=== PATIENT | male | born 1985 | race Caucasian/White ===

== ENCOUNTER 2017-02-24 09:56 | Emergency (ER) | payer OTHER ==
--- NOTE | 2017-02-24 11:02 | XRAY Preliminary Report ---
Exam: XR Hand 3 View LT IMPRESSION: 1. Diffuse left hand soft tissue swelling. 2. No fracture evident. [facility] SITE ID: [id number]
--- NOTE | 2017-02-24 11:04 | XRAY Report ---
EXAM: LEFT HAND RADIOGRAPHY EXAM DATE: 02/24/2017 10:53 AM. CLINICAL HISTORY: Crush injury/pain. COMPARISON: None. TECHNIQUE: 3 views. FINDINGS: Bones: Normal. No fractures or bone lesions. Joints: Normal. No subluxations. Soft Tissues: Diffuse soft tissue swelling. IMPRESSION: 1. Diffuse left hand soft tissue swelling. 2. No fracture evident. [facility] Referring Provider Line: [phone] SITE ID: [id number]
[2017-02-24] MEDS ORDERED: cefTRIAXone 1 GM VIAL IM STA (11:18)
--- NOTE | 2017-02-24 11:21 | ED Physician Documentation ---
PD HPI UPPER EXT INJURY - Stated complaint Stated Complaint: LT HAND INJURY - Chief complaint Chief Complaint: Ext Problem - History obtained from History obtained from: Patient - History of Present Illness Location: Left, Hand Type of injury: Blunt / blow Where injury occurred: Home Timing - onset: How many days ago (4) Timing - duration: Days (4) Timing - details: Gradual onset, Still present Improved by: Rest, Immobilization Worsened by: Moving, Palpating Associated symptoms: Swelling, Discolored Contributing factors: No: Anticoagulated Similar symptoms before: Has not had sx before Recently seen: Not recently seen - Additonal information Additional information: 31-year-old male injured his left hand when it was pinched between With a trailer hitch from his boat. He was not having much in the way of pain or problems with his hand until about 2:00 in the morning this morning when he awoke with swelling and redness to the hand as well as pain. He has been able to use his hand and now has some restriction in the flexion of the index finger on the left secondary to pain over the dorsal surface. Review of Systems Constitutional: denies: Fever, Chills, Myalgias, Fatigue Eyes: denies: Decreased vision Respiratory: denies: Cough GI: denies: Vomiting Skin: denies: Rash Musculoskeletal: reports: Extremity pain, Extremity swelling. denies: Neck pain , Back pain Neurologic: denies: Generalized weakness, Focal weakness, Numbness PD PAST MEDICAL HISTORY - Past Medical History Past Medical History: No - Past Surgical History Past Surgical History: No - Present Medications Home Medications: Ambulatory Orders Medication Instructions Recorded Confirmed Clindamycin [Cleocin] 300 mg PO Q6H #28 capsule 02/24/17 - Allergies Allergies/Adverse Reactions: Allergies Allergy/AdvReac Type Severity Reaction Status Date / Time Penicillins Allergy Unknown Verified 02/24/17 10:18 sulfamethoxazole Allergy Unknown Verified 02/24/17 10:18 [From Bactrim] trimethoprim [From Bactrim] Allergy Unknown Verified 02/24/17 10:18 - Social History Does the pt smoke?: No Smoking Status: Never smoker Does the pt drink ETOH?: No Does the pt have substance abuse?: No - Immunizations Immunizations are current?: Yes PD ED PE NORMAL - Vitals Vital signs reviewed: Yes (hypertensive ) - General General: Alert and oriented X 3, No acute distress, Well developed/nourished - HEENT HEENT: Atraumatic - Respiratory Respiratory: No respiratory distress - Derm Derm: Normal color, Warm and dry, No rash - Extremities Extremities: Other (Over the dorsum of the left hand there is significant swelling and erythema from the distal metacarpals to the wrist and over the radial surface of the hand. There is an eschar over the midportion of the second metacarpal. There is no lymphangitic streaking. He is able to flex and extend all fingers with some pain over the dorsal surface of the left index finger with flexion.) - Neuro Neuro: No motor deficit, No sensory deficit - Psych Psych: Normal mood, Normal affect Results - Vitals Vitals: Vital Signs - 24 hr 02/24/17 10:14 Temperature 36.6 C Heart Rate 72 Respiratory 16 Rate Blood Pressure 141/75 H O2 Saturation 96 Oxygen O2 Source Room air - Rads (name of study) left hand Radiology: Prelim report reviewed (Impression: 1. Diffuse left hand soft tissue swelling.2. No fracture evident.), EMP read indepedently, See rad report PD MEDICAL DECISION MAKING - ED course Complexity details: reviewed results, re-evaluated patient, considered differential, d/w patient ED course: 31-year-old male with a swollen left hand with evidence of acute infection there is no fluctuance to the area he is administered IM Rocephin and we will put him on some clindamycin as he is allergic to Bactrim. Departure - Departure Disposition: 01 Home, Self Care Clinical Impression: Cellulitis Qualifiers: Site of cellulitis: extremity Site of cellulitis of extremity: upper extremity Laterality: left Qualified Code(s): L03.114 - Cellulitis of left upper limb Instructions: ED Infec Skin Cellulitis Follow-Up: [facility] [Provider Group] Prescriptions: Clindamycin [Cleocin] 300 mg PO Q6H #28 capsule Comments: Today in the Emergency Department your blood pressure was elevated. This can happen from the stress of the visit itself, from a current illness or circumstance or from uncontrolled hypertension. If you take blood pressure medications take your usual mediations, have your blood pressure re-checked in an appropriate setting and follow up any elevation with your primary care doctor.
[2017-02-24] MEDS ORDERED: cefTRIAXone 1 GM VIAL ONE (11:24)
[2017-02-24] MEDS ORDERED: LIDOCAINE 1% 2 ML VIAL ONE (11:24)
[2017-02-24 11:59] VITALS: BP 144/69
== END 2017-02-24 11:56 | disposition home or self-care (01) ==
LOC: ED 09:56
DX: L03.114 Cellulitis of left upper limb (principal); R03.0 Elevated blood-pressure reading, without diagnosis of hypertension
CPT/HCPCS: 96372; 99283

== ENCOUNTER 2017-08-05 12:24 | Outpatient (CLI) | payer OTHER ==
--- NOTE | 2017-08-05 13:44 | MRI Report ---
EXAM: MRI BRAIN AND INTERNAL AUDITORY CANAL (IAC), WITHOUT CONTRAST. EXAM DATE: 08/05/2017 01:12 PM. CLINICAL HISTORY: Bilateral sensorineural hearing loss for several years. COMPARISON: None. TECHNIQUE: Multiplanar, multisequence T1-weighted and fluid-sensitive MRI sequences of the brain and IACs were performed. Other: None. IV Contrast: None FINDINGS: Brain Volume: Normal for age. Parenchyma/Dura: No acute hemorrhage, mass, or acute infarct.No white matter lesions identified. Internal Auditory Canals (IACs): Normal. No cranial nerve lesion or inflammatory process identified. The inner ear structure are symmetric and unremarkable. The cerebellopontine angles bilaterally, the internal auditory canals bilaterally, the cochleas bilaterally, and the vestibular apparatuses bilate rally are unremarkable. Ventricles/Cisterns: No hydrocephalus. No abnormal extra-axial fluid collection or hemorrhage. Orbits: Symmetric and unremarkable. Sella Turcica: The pituitary gland, cavernous sinuses, suprasellar cistern and optic chiasm are unrem arkable. Vasculature: Normal signal flow void is seen in the major arterial structures at the skull base. The dural sinuses are patent. Sinuses: No acute sinus disease. Bones: No focal pathologic appearing marrow signal changes. Other: None. IMPRESSION: 1. No evidence of retrocochlear pathology on this noncontrast study. The cerebellopontine angles bila terally, the internal auditory canals bilaterally, the cochleas bilaterally, and the vestibular appar atuses bilaterally are unremarkable. 2. Unremarkable noncontrast MRI evaluation of the brain. No MRI evidence of acute intracranial abnorm ality. Specifically, no evidence of acute or subacute infarct, acute intracranial hemorrhage, mass, m idline shift, or hydrocephalus. [facility] Referring Provider Line: [phone] SITE ID: [id number]
== END 2017-08-05 12:25 | disposition home or self-care (01) ==
LOC: DI 12:24
PROVIDERS: ATTEND General Practice
DX: H90.5 Unspecified sensorineural hearing loss (principal)
CPT/HCPCS: 70540

== ENCOUNTER 2018-10-24 20:32 | Emergency (ER) | payer OTHER ==
[2018-10-24] MEDS ORDERED: CLINDAMYCIN 150 MG CAPSULE PO STA (21:48)
[2018-10-24] MEDS ORDERED: BUFFERED LIDOCAINE 10 ML SYRINGE SUBQ STA (21:48)
--- NOTE | 2018-10-24 21:50 | ED Physician Documentation ---
PD HPI HEENT - Stated complaint Stated Complaint: LT FACE SWOLLEN - Chief complaint Chief Complaint: Heent - History obtained from History obtained from: Patient - History of Present Illness Timing - onset: Today (He had a pimple-like lesion on the inside of the left nares, but he popped it early this morning and got a little pus out. This evening his face is swollen. He denies fevers.) Review of Systems Constitutional: denies: Fever, Chills Ears: denies: Loss of hearing, Ear pain Nose: denies: Rhinorrhea / runny nose, Congestion PD PAST MEDICAL HISTORY - Past Medical History Past Medical History: No - Past Surgical History Past Surgical History: No - Present Medications Home Medications: Ambulatory Orders Medication Instructions Recorded Confirmed Clindamycin HCl [Clindamycin 300MG 300 mg PO Q6H #28 capsule 10/24/18 CAP] - Allergies Allergies/Adverse Reactions: Allergies Allergy/AdvReac Type Severity Reaction Status Date / Time Penicillins Allergy Unknown Verified 10/24/18 21:44 sulfamethoxazole Allergy Unknown Verified 10/24/18 21:44 [From Bactrim] trimethoprim [From Bactrim] Allergy Unknown Verified 10/24/18 21:44 - Social History Does the pt smoke?: No Smoking Status: Never smoker Does the pt drink ETOH?: No Does the pt have substance abuse?: No - Immunizations Immunizations are current?: Yes - POLST Patient has POLST: No PD ED PE NORMAL - Vitals Vital signs reviewed: Yes - General General: Alert and oriented X 3, No acute distress - HEENT HEENT: Other (On the inside of the left nares laterally there is a pustular lesion with very mild left-sided facial swelling) - Neck Neck: Supple, no meningeal sign, No bony TTP - Neuro Neuro: Alert and oriented X 3, Normal speech Results - Vitals Vitals: Vital Signs - 24 hr 10/24/18 20:35 Temperature 37.5 C Heart Rate 69 Respiratory 18 Rate Blood Pressure 156/59 H O2 Saturation 97 Oxygen O2 Source Room air Procedures - General procedure General procedure: Inferior orbital nerve block was done with buffered lidocaine using an intraoral approach with excellent facial anesthesia. After that an 18-gauge needle was used to access the pus inside the nares it was deloculated with a Q-tip and a culture was sent. Departure - Departure Disposition: 01 Home, Self Care Clinical Impression: Nasal abscess, Facial cellulitis Condition: Good Record reviewed to determine appropriate education?: Yes Instructions: ED Cellulitis Facial Prescriptions: Clindamycin HCl [Clindamycin 300MG CAP] 300 mg PO Q6H #28 capsule Comments: We are performing a wound culture, the results should be done in 48-72 hours. If antibiotic change is necessary we will call you. Return if worse in the meantime, especially if you develop increased pain, fevers, cannot keep down the medication. Otherwise follow-up with your physician in approximately 2-3 days. Your blood pressure was elevated today on check into the emergency department. This does not mean that you have hypertension, it is a common phenomenon to come to the emergency department and have elevated blood pressure. I recommend that you see your primary care physician within the week to have it rechecked when you are feeling better.
[2018-10-24 22:27] VITALS: BP 146/80
== END 2018-10-24 22:11 | disposition home or self-care (01) ==
LOC: ED 20:32
DX: J34.0 Abscess, furuncle and carbuncle of nose (principal); L03.211 Cellulitis of face; R03.0 Elevated blood-pressure reading, without diagnosis of hypertension
CPT/HCPCS: 10160; 87070; 87181; 87205; 99283; A9270; 64405